=== PATIENT | female | born 1955 | race Caucasian/White ===

== ENCOUNTER 2020-03-19 04:06 | Emergency (ER) | payer OTHER ==
[~2020-03-19] VITALS: Ht 162.6 cm; Wt 44.0 kg
[~2020-03-19 04:06] MED LIST: ABILIFY 2 MG2 M1 PO; ALENDRONATE SOD70 MG PO; APAP650 PO; B12INJ IM; BENGAY113 GM TP; CARISOPRODOL 3350 MG PO; CELEXA20 MG PO; CITRACAL + D E1 EACH PO; DETROL LA4 MG PO; FOSAMAX; IBUPROFEN 200200 M1 PO; INDAPAMIDE2.5 MG PO; LAMICTAL; LAMICTAL XR100 MG PO; MYLANTA GAS MA125 MG PO; NORCO 5-325 TA1 EACH PO; SEROQUEL; TYLENOL325 MG PO; VITAMIN D 5050000 I1 PO; ZEASORB TP; ZEASORB71 GM TP
[2020-03-19 05:55] VITALS: BP 128/74
== END 2020-03-19 07:30 ==
LOC: ER 04:06
DX: S01.511A Laceration without foreign body of lip, initial encounter (principal); G40.909 Epilepsy, unspecified, not intractable, without status epilepticus; F31.9 Bipolar disorder, unspecified; M81.0 Age-related osteoporosis without current pathological fracture; Z90.49 Acquired absence of other specified parts of digestive tract; Z79.899 Other long term (current) drug therapy; W06.XXXA Fall from bed, initial encounter; Y93.89 Activity, other specified; Y92.128 Other place in nursing home as the place of occurrence of the external cause; Y99.8 Other external cause status